=== PATIENT | female | born 2000 | race American Indian/Alaskan Native ===

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

== ENCOUNTER 2021-11-24 17:20 | Inpatient (IN) | payer MEDICAID, OTHER ==
[2021-11-24] MEDS ORDERED: TERBUTALINE 1 MG/1 ML INJ SUB-Q PRN (19:41)
[2021-11-24] MEDS ORDERED: LIDOCAINE (2%) 20 MG/1 ML VIAL 20 ML MDV INFILTRATI ONE ×2 (19:41→21:54)
[2021-11-24] MEDS ORDERED: OXYTOCIN 10 UNIT/1 ML INJ IM PRN (19:41)
[2021-11-24] MEDS ORDERED: ONDANSETRON 4 MG/2 ML INJ IV PRN (19:41)
[2021-11-24] MEDS ORDERED: LOPERAMIDE 2 MG CAP PO PRN (19:41)
[2021-11-24] MEDS ORDERED: CARBOPROST TROMETHAMINE 250 MCG/1 ML INJ IM PRN (19:41)
[2021-11-24] MEDS ORDERED: MINERAL OIL 30 ML ORAL LIQD PO PRN (19:41)
[2021-11-24] MEDS ORDERED: miSOPROStol 200 MCG TAB PR PRN (19:41)
[2021-11-24] MEDS ORDERED: METHYLERGONOVINE MALEATE 0.2 MG/ML VIAL IM PRN (19:41)
[2021-11-24] MEDS ORDERED: ePHEDrine SULFATE 50 MG/1 ML INJ IV PRN (19:41)
[2021-11-24] MEDS ORDERED: NALOXONE 0.4 MG/1 ML INJ IV PRN (19:41)
[2021-11-24] MEDS ORDERED: ACETAMINOPHEN 325 MG TAB PO PRN (19:41)
[2021-11-24] MEDS ORDERED: BUTORPHANOL 2 MG/1 ML INJ IV PRN (19:41)
[2021-11-24] MEDS ORDERED: AMPICILLIN/NS 2 GM/100 ML 2 GM/100 ML BAG IV ONE (19:41)
[2021-11-24] MEDS ORDERED: fentaNYL 100 MCG/2 ML INJ IV PRN (19:41)
[2021-11-24] MEDS ORDERED: LACTATED RINGERS 1,000 ML IV SCH (19:45)
[2021-11-24] MEDS ORDERED: OXYTOCIN DRIP 30 UNITS/500 ML BAG IV SCH (20:00)
[2021-11-24 20:38] LABS: Hematocrit 39.6 % (30.3-42.9); Hemoglobin 14.1 gm/dl (10.1-14.3); Mean Corpuscular HGB Conc 36 % (30-34); Mean Corpuscular Volume 96 fl (79-97); Platelet Count 225 K/mm3 (140-440); Red Blood Count 4.15 M/mm3 (3.65-5.03); Red Cell Distribution Width 13.5 % (13.2-15.2)
[2021-11-24] MEDS ORDERED: KETAMINE/STERILE WATER 50 MG/ML SYRINGE ONE ×2 (22:26→22:42)
--- NOTE | 2021-11-24 23:04 | Anesthesia Day of Surgery ---
Anesthesia Day of Surgery - Day of Surgery Patient Examined: Yes Patient H&P Reviewed: Yes Patient is NPO: Yes
--- NOTE | 2021-11-24 23:04 | Anesthesia Consultation ---
Anesthesia Consult and Med Hx Date of service: 11/24/21 - Airway Anesthetic Teeth Evaluation: Good ROM Head & Neck: Adequate Mental/Hyoid Distance: Adequate Mallampati Class: Class II Intubation Access Assessment: Probably Good - Pulmonary Exam CTA: Yes - Cardiac Exam Cardiac Exam: RRR - Pre-Operative Health Status ASA Pre-Surgery Classification: ASA2 Proposed Anesthetic Plan: MAC - Pulmonary Hx Asthma: No - Cardiovascular System Hx Hypertension: No - Central Nervous System Hx Seizures: No Hx Psychiatric Problems: No - Endocrine Hx Renal Disease: No Hx Hypothyroidism: No Hx Hyperthyroidism: No - Hematic Hx Sickle Cell Disease: No - Other Systems Hx Alcohol Use: No
--- NOTE | 2021-11-24 23:28 | History and Physical Report ---
History of Present Illness Date of examination: 11/24/21 Date of admission: 11/24/21 19:41 Chief complaint: contractions History of present illness: Pt is a 21 year old -Surinamese female SAYDA 12/01/21 at 39w0d presents with regular contractions and advanced cervical dilation of 5 cm. She denies vaginal bleeding or leakage of fluid. She has had care at [facility] since the first trimester complicated by eczema and GBS positive status. During evaluation in triage, the patient continued to progress and experienced SROM with thick meconium. Past History Past Medical History: no pertinent history, other (Eczema ) Past Surgical History: no surgical history Family/Genetic History: none Social history: no significant social history - Obstetrical History Expected Date of Delivery: 12/01/21 Actual Gestation: 39 Week(s) 0 Day(s) : 2 Para: 0 Hx # Term Pregnancies: 0 Number of Pregnancies: 0 Spontaneous Abortions: 1 Induced : 0 Number of Living Children: 0 Medications and Allergies Allergies Allergy/AdvReac Type Severity Reaction Status Date / Time LATEX Allergy Anaphylaxis Uncoded 11/24/21 22:08 MUSHROOM Allergy Anaphylaxis Uncoded 11/24/21 22:08 SEAFOOD Allergy Anaphylaxis Uncoded 11/24/21 22:08 Home Medications Medication Instructions Recorded Confirmed Last Taken Type Albuterol Mdi (or & Nicu Only) 2 puff IH QID PRN #2 inhalation 08/04/13 Unknown Rx [ProAir HFA Inhaler] Prednisone 20 mg PO QDAY 5 Days tablet 08/04/13 Unknown Rx Cyclobenzaprine [Flexeril] 10 mg PO BID PRN #20 tablet 10/02/18 Unknown Rx Menthol/Camphor [[place] 1 applicatio TP QID PRN #1 tube 10/02/18 Unknown Rx Ointment] Naproxen 500 mg PO BID PRN #30 tablet 10/02/18 Unknown Rx Active Meds: Active Medications Acetaminophen (Acetaminophen 325 Mg Tab) 650 mg PO Q4H PRN PRN Reason: Pain, Mild (1-3) Butorphanol Tartrate (Butorphanol 2 Mg/1 Ml Inj) 1 mg IV Q2H PRN PRN Reason: Pain, Moderate(4-6) LABOR PAIN Carboprost Tromethamine (Carboprost Tromethamine 250 Mcg/1 Ml Inj) 250 mcg IM ONCE PRN PRN Reason: Uterine Bleeding Ephedrine Sulfate (Ephedrine Sulfate 50 Mg/1 Ml Inj) 10 mg IV Q2M PRN PRN Reason: Hypotension Fentanyl (Fentanyl 100 Mcg/2 Ml Inj) 100 mcg IV Q2H PRN PRN Reason: Pain,Severe (7-10) LABOR PAIN Last Admin: 11/24/21 22:03 Dose: 100 mcg Oxytocin/Sodium Chloride (Pitocin/Ns 30 Unit/500ml) 30 units in 500 mls @ 2 mls/hr IV TITR GLADYS; Protocol Lactated Ringer's (Lactated Ringers) 1,000 mls @ 125 mls/hr IV DIRECT GLADYS Last Admin: 11/24/21 20:55 Dose: 125 mls/hr Oxytocin/Sodium Chloride (Pitocin/Ns 30 Unit/500ml) 30 units in 500 mls @ 40 mls/hr IV TITR GLADYS; Protocol Last Admin: 11/24/21 23:08 Dose: 40 ml/hr, 40 mls/hr Ampicillin Sodium (Ampicillin/Ns 1 Gm/50 Ml) 1 gm in 50 mls @ 100 mls/hr IV Q4H GLADYS; Protocol Loperamide HCl (Loperamide 2 Mg Cap) 2 mg PO ONCE PRN PRN Reason: give with Hemabate Mineral Oil (Mineral Oil 30 Ml Oral Liqd) 30 ml PO QHS PRN PRN Reason: Constipation Misoprostol (Misoprostol 200 Mcg Tab) 800 mcg VA ONCE PRN PRN Reason: Uterine Bleeding Naloxone HCl (Naloxone 0.4 Mg/1 Ml Inj) 0.1 mg IV Q2MIN PRN PRN Reason: Res Rate </= 8 or 02 SAT < 92% Ondansetron HCl (Ondansetron 4 Mg/2 Ml Inj) 4 mg IV Q8H PRN PRN Reason: Nausea And Vomiting Oxytocin (Oxytocin 10 Unit/1 Ml Inj) 10 unit IM ONCE PRN PRN Reason: Uterine Bleeding Terbutaline Sulfate (Terbutaline 1 Mg/1 Ml Inj) 0.25 mg SUB-Q ONCE PRN PRN Reason: Hyperstimulation/Hypertonicity Review of Systems All systems: negative - Vital Signs Vital signs: Vital Signs Pulse Pulse Ox 105 H 97 11/24/21 18:42 11/24/21 18:42 Temp Pulse Resp BP Pulse Ox 98.4 F 73 18 120/72 97 11/24/21 18:43 11/24/21 23:21 11/24/21 18:43 11/24/21 23:21 11/24/21 23:19 - Physical Exam Breasts: Positive: deferred Abdomen: Positive: soft (obese, gravid ) Uterus: Positive: enlarged (gravid ) Extremities: Positive: edema (trace ) - Obstetrical FHR: auscultation normal Uterine Contraction Monitor Mode: External Cervical Dilatation: 10 Cervical Effacement Percentage: 100 station: +2 Uterine Contraction Pattern: Regular Uterine Tone Measurement Phase: Resting Uterine Contraction Intensity: Strong/Firm Results Result Diagrams: 11/24/21 20:00 Abnormal lab results 11/24/21 Range/Units 20:00 MCH 34 H (28-32) pg MCHC 36 H (30-34) % All other labs normal. Assessment and Plan A: IUP at 39w0d Transitional Labor SROM- meconium stained fluid Obesity GBS positive P: Admit to labor and delivery Routine intrapartum care Ampicillin for GBS prophylaxis Closely monitor maternal and status
--- NOTE | 2021-11-24 23:38 | Procedure Note ---
OB Delivery Note - Delivery Date of Delivery: 11/24/21 Surgeon: NIALL ELIAS Estimated blood loss: other (700 mL) - Vaginal Delivery presentation: vertex Delivery position: OA Intrapartum events: PROM->1hr before delivery, meconium, uterine atony (s/p Methergine 0.2 mg IM ) Delivery induction: none Delivery monitor: external FHT, external uterine Route of delivery: Delivery placenta: spontaneous Delivery cord: nuchal cord (tight, doubly clamped and cut ) Episiotomy: none Delivery laceration: 2nd degree (left and right second degree perineal lacerations repaired with 2-0 Vicryl in a running locked fashion. Midline periurethral laceration repaired with 3-0 Vicryl in a running fashion. Left labial first degree repaired with 3-0 Vicryl in a figure of eight fashion ) Delivery repair: vicryl Anesthesia: local, other (MAC, attended by anesthesia) - Infant A at 1 minute: 8 at 5 minutes: 9 Gender: Male (3130g (6lb 14oz) @ 2152pm)
[2021-11-24] MEDS ORDERED: AMPICILLIN/NS 1 GM/50 ML 1 GM/50 ML BAG IV SCH (23:45)
[2021-11-25 00:17] LABS: Hematocrit 37.4 % (30.3-42.9); Hemoglobin 13.3 gm/dl (10.1-14.3)
[2021-11-25] MEDS ORDERED: OXYTOCIN DRIP 30 UNITS/500 ML BAG IV SCH (01:00)
[2021-11-25] MEDS ORDERED: PROMETHAZINE 25 MG TAB PO PRN (03:54)
[2021-11-25] MEDS ORDERED: diphenhydrAMINE 25 MG CAP PO PRN (03:54)
[2021-11-25] MEDS ORDERED: PROMETHAZINE 25 MG RECT SUPP PR PRN (03:54)
[2021-11-25] MEDS ORDERED: ONDANSETRON 4 MG/2 ML INJ IV PRN (03:54)
[2021-11-25] MEDS ORDERED: LANOLIN/ZINC/DIMETHICONE (LANSINOH) 7 GM TP PRN (03:54)
[2021-11-25] MEDS ORDERED: MAGNESIUM HYDROXIDE (MOM) ORAL LIQD UDC PO PRN (03:54)
[2021-11-25] MEDS: IBUPROFEN 600 MG TAB PO PRN ×3 (04:15→18:17)
[2021-11-25] MEDS ORDERED: BENZOCAINE/MENTHOL 20/0.5% TOP SPRAY 56 GM TP PRN (09:45)
--- NOTE | 2021-11-25 09:46 | Progress Note ---
Assessment and Plan A: PPD#1 s/p at term Hemorrhage Obesity P: Routine care Pt will need to follow up in 1 wk for laceration follow up after discharge Subjective - Subjective Date of service: 11/25/21 Principal diagnosis: s/p at term; Hemorrhage Interval history: Pt without complaints presently. Vulvae edematous as expected. Minimal lochia at this time. Patient reports: appetite normal, pain well controlled, ambulating normally, no voiding normally (carvalho just removed ) [place]: doing well Objective - Vital Signs Latest vital signs: Vital Signs Temp Pulse Resp BP BP Pulse Ox Pulse Ox 11/25/21 04:40 97.9 F 71 14 109/67 97 97 11/25/21 03:54 72 97 11/25/21 03:49 83 97 11/25/21 03:44 77 98 11/25/21 03:39 101 H 98 11/25/21 03:34 81 97 11/25/21 03:32 86 103/60 11/25/21 03:29 84 96 11/25/21 03:24 91 H 97 11/25/21 03:19 92 H 96 11/25/21 03:17 88 107/61 11/25/21 03:14 82 97 11/25/21 03:09 86 96 11/25/21 03:04 75 98 11/25/21 03:02 78 97/55 11/25/21 01:59 83 98 11/25/21 01:54 92 H 99 11/25/21 01:49 77 99 11/25/21 01:48 74 120/58 11/25/21 01:44 74 98 11/25/21 01:39 72 99 11/25/21 01:34 80 98 11/25/21 01:29 97.3 F L 68 100 11/25/21 01:24 66 99 11/25/21 01:19 68 98 11/25/21 01:17 71 98/60 11/25/21 01:14 77 98 11/25/21 01:09 76 97 11/25/21 01:04 69 97 11/25/21 01:02 76 101/60 11/25/21 00:59 69 97 11/25/21 00:54 64 97 11/25/21 00:49 61 96 11/25/21 00:47 70 108/67 03/13/22 00:44 77 96 11/25/21 00:39 67 96 11/25/21 00:34 74 96 11/25/21 00:31 60 113/70 11/25/21 00:29 65 96 11/25/21 00:27 68 110/66 11/25/21 00:24 69 96 11/25/21 00:22 64 112/69 11/25/21 00:19 68 96 11/25/21 00:16 65 114/73 11/25/21 00:14 69 95 11/25/21 00:11 72 113/73 11/25/21 00:09 69 96 11/25/21 00:07 69 116/74 11/25/21 00:04 70 96 11/25/21 00:01 67 118/72 11/24/21 23:59 65 97 11/24/21 23:56 58 L 117/72 11/24/21 23:54 65 98 11/24/21 23:52 71 120/75 11/24/21 23:49 64 98 11/24/21 23:46 77 124/75 11/24/21 23:44 69 98 11/24/21 23:41 70 121/71 11/24/21 23:39 70 98 11/24/21 23:36 71 117/72 11/24/21 23:34 70 98 11/24/21 23:31 72 118/74 11/24/21 23:29 74 98 11/24/21 23:27 72 120/73 11/24/21 23:24 72 99 11/24/21 23:21 73 120/72 11/24/21 23:19 77 97 11/24/21 23:17 79 121/73 11/24/21 23:14 89 97 11/24/21 23:11 96 H 134/77 11/24/21 23:09 93 H 99 11/24/21 23:06 81 119/66 11/24/21 23:04 82 99 11/24/21 23:01 81 121/72 11/24/21 22:59 82 100 11/24/21 22:56 77 121/74 11/24/21 22:54 80 100 11/24/21 22:52 75 125/74 11/24/21 22:49 78 100 11/24/21 22:47 71 142/81 11/24/21 22:44 61 100 11/24/21 22:41 99 H 112/59 11/24/21 22:39 111 H 99 11/24/21 22:36 88 113/58 11/24/21 22:34 93 H 100 11/24/21 22:32 90 118/61 11/24/21 22:29 65 100 11/24/21 22:24 84 100 11/24/21 22:21 83 126/65 11/24/21 22:19 84 100 11/24/21 22:14 89 100 11/24/21 22:09 93 H 99 11/24/21 22:04 97 H 100 11/24/21 21:10 92 H 98 11/24/21 21:05 87 98 11/24/21 21:00 96 H 98 11/24/21 20:55 87 97 11/24/21 20:50 99 H 98 11/24/21 20:45 98 H 97 11/24/21 20:40 83 96 11/24/21 20:39 81 85 11/24/21 20:35 79 99 11/24/21 20:30 81 99 11/24/21 20:25 92 H 99 11/24/21 20:20 84 98 11/24/21 20:15 85 100 11/24/21 20:10 104 H 98 11/24/21 19:12 101 H 98 11/24/21 19:07 96 H 96 11/24/21 19:02 92 H 96 11/24/21 18:57 101 H 97 11/24/21 18:52 96 H 97 11/24/21 18:47 101 H 96 11/24/21 18:43 98.4 F 98 H 18 121/74 121/74 97 11/24/21 18:42 105 H 97 Intake and Output 11/24/21 11/25/21 11/25/21 21:59 06:59 14:59 Output Total 750 Balance -750 Output: Urine 750 Indwelling Catheter 750 Other: Total, Output Amount 750 # Voids Indwelling Catheter Weight Estimated Blood Loss - Exam Breasts: Present: deferred Abdomen: Present: soft (obese ) Uterus: Present: fundal height at umbilicus Extremities: Present: edema (trace) - Labs Labs: Abnormal lab results 11/24/21 Range/Units 20:00 MCH 34 H (28-32) pg MCHC 36 H (30-34) %
[2021-11-25] MEDS ORDERED: HYDROcodone/ACETAMINOPHEN 5-325 MG TAB PO PRN (09:48)
[2021-11-25] MEDS: WITCH HAZEL/ GLYCERIN PAD TP PRN ×2 (10:19→18:11)
[2021-11-25 11:13] LABS: Hemoglobin 12.6 gm/dl (10.1-14.3)
--- NOTE | 2021-11-25 13:46 | Post Anesthesia Evaluation ---
- Post Anesthesia Evaluation Patient Participated: Yes Airway Patent: Yes Stable Respiratory Function: Yes Nausea/Vomiting: No Temp > 96.8F: Yes Pain Manageable: Yes Adequeate Hydration: Yes Anesthesia Complications: No Block Receding Appropriately: Yes
[2021-11-26] MEDS ORDERED: MEASLES, MUMPS & RUBELLA 12,500 UNIT/0.5 ML VACCINE SUB-Q ONE (01:07)
[2021-11-26] MEDS ORDERED: TETANUS,DIPH,PERTUSS(ACELL) VACCINE 0.5 ML SYRINGE IM ONE (06:00)
--- NOTE | 2021-11-26 08:19 | Progress Note ---
Assessment and Plan - Patient Problems (1) Vaginal delivery Current Visit: Yes Status: Acute Plan to address problem: Patient doing well Discharge home Subjective - Subjective Date of service: 11/26/21 Principal diagnosis: s/p at term; Hemorrhage Interval history: The patient is without complaints. She is tolerating regular diet and her pain is well controlled. Patient reports: appetite normal, voiding normally, pain well controlled : doing well Objective - Vital Signs Latest vital signs: Vital Signs Temp Pulse Resp BP BP Pulse Ox Pulse Ox 11/26/21 05:20 97 11/26/21 03:50 97 11/26/21 01:30 97 11/26/21 00:34 98.3 F 90 20 113/60 98 11/25/21 23:15 98 11/25/21 22:10 98 11/25/21 19:40 98 11/25/21 15:30 97.9 F 68 18 104/59 99 11/25/21 12:45 98.2 F 82 18 109/62 100 11/25/21 08:55 97.8 F 76 18 105/59 99 Intake and Output 11/25/21 11/26/21 11/26/21 22:59 06:59 14:59 Intake Total 440 480 Output Total 400 Balance 40 480 Intake: Oral 440 Intake, Free Water 480 Output: Urine 400 Void 400 Other: Total, Intake Amount 120 Total, Output Amount 400 # Voids Void 1
--- NOTE | 2021-11-26 08:20 | Discharge Summary ---
Providers - Providers Date of Admission: 11/24/21 19:41 Date of discharge: 11/26/21 Attending physician: NIALL ELAIS Primary care physician: [employer] Hospitalization Reason for admission: active labor Delivery: complications: other ( hemorrhage) Discharge diagnosis: IUP at term delivered Hospital course: The patient was admitted in active labor and had a vaginal delivery. Her intrapartum course was complicated by hemorrhage. Her course was uncomplicated and the patient remained hemodynamically stable. Condition at discharge: Good Disposition: 01 HOME / SELF CARE / HOMELESS - Discharge Diagnoses (1) Vaginal delivery Status: Acute Plan - Discharge Medications Prescriptions: Ibuprofen [Motrin] 800 mg PO Q8HR PRN #30 tablet PRN Reason: Pain , Severe (7-10) HYDROcodone/APAP 5-325 [Beggs 5/325] 1 each PO Q6HR PRN #15 tablet PRN Reason: Pain - Provider Discharge Summary Activity: no sex for 6 weeks, no heavy lifting 4 weeks, no strenuous exercise Diet: routine Instructions: routine Additional instructions: [] Smoking cessation referral if applicable(refer to patient education folder for contact #) [] Refer to [facility] Booklet Call your doctor immediately for: * Fever > 100.5 * Heavy vaginal bleeding ( >1 pad per hour) * Severe persistent headache * Shortness of breath * Reddened, hot, painful area to leg or breast * Schedule visit in 4 weeks - Follow up plan
[2021-11-26] MEDS: IBUPROFEN 600 MG TAB PO PRN (11:37)
[2021-11-26 13:10] VITALS: BP 105/65
== END 2021-11-26 15:50 | disposition home or self-care (01) | DRG 774 ==
LOC: APU 17:20 → TRG 17:20 → LD 19:41 → TRG 19:41 → LD 20:07 → OB 11-25 04:45
PROVIDERS: ADMIT Obstetrics & Gynecology; ATTEND Obstetrics & Gynecology
PROC: 10E0XZZ Delivery of Products of Conception, External Approach (ICD-10-PCS; principal; 2021-11-24)
PROC: 0KQM0ZZ Repair Perineum Muscle, Open Approach (ICD-10-PCS; 2021-11-24)
PROC: 3E0234Z Introduction of Serum, Toxoid and Vaccine into Muscle, Percutaneous Approach (ICD-10-PCS; 2021-11-26)
DX: O77.0 Labor and delivery complicated by meconium in amniotic fluid (principal); O72.1 Other immediate postpartum hemorrhage; Z37.0 Single live birth; Z3A.39 39 weeks gestation of pregnancy; Z23 Encounter for immunization; O99.824 Streptococcus B carrier state complicating childbirth; O99.214 Obesity complicating childbirth; O42.02 Full-term premature rupture of membranes, onset of labor within 24 hours of rupture; O69.81X0 Labor and delivery complicated by cord around neck, without compression, not applicable or unspecified; O70.1 Second degree perineal laceration during delivery; Z91.013 Allergy to seafood; Z91.040 Latex allergy status; Z91.018 Allergy to other foods
CPT/HCPCS: 36415; 85014; 85018; 85027; 86592; 86850; 86900; 86901; 99211; G0378; J7121; G0463; J0290; J2210; J2590; J3010; J3490; J7120; U0003